=== PATIENT | female | born 1950 | race Two or more races ===

== ENCOUNTER 2018-07-03 13:08 | Inpatient (IN) | payer MEDICARE, OTHER ==
[~2018-07-03] VITALS: Ht 154.9 cm; Wt 67.6 kg
[2018-07-03] MEDS ORDERED: OMEP20CA10 PO (13:44)
[2018-07-03] MEDS ORDERED: HYDR-3028 PO (13:44)
[2018-07-03] MEDS ORDERED: OLOP5DRO EACHEYE (13:44)
[2018-07-03] MEDS ORDERED: ACET-868 PO (13:44)
[2018-07-03] MEDS ORDERED: MONT10TA22 PO (13:44)
[2018-07-03] MEDS ORDERED: GABA-534 PO (13:44)
[2018-07-03] MEDS ORDERED: LEVE750T10 PO (13:44)
[2018-07-03] MEDS ORDERED: NAPR500T6 PO (13:44)
[2018-07-03] MEDS ORDERED: LISI-603 PO (13:44)
[2018-07-03] MEDS ORDERED: FURO20TA4 PO (13:44)
[2018-07-03] MEDS ORDERED: MAG HYDROX/AL HYDROX/SIMETH 30 ML UDC PO PRN (14:00)
--- NOTE | 2018-07-03 15:00 | NUR ---
GPS/RN RECEIVED PT DIRECT ADMIT FROM [facility]. ON 5150 FOR DTS. PT DENIES SI OR HI AT THE TIME OF ADMISSION. AMBULATORY SELF CARE. CHECKED FOR CONTRABAND. ADVISEMENT SERVED. ADMITTING ORDERS RECEIVED AND CARRIED OUT. FARA DUPREE MADE AWARE OF ADMISSION.
--- NOTE | 2018-07-03 15:29 | NUR ---
Dr. Orellana made aware fo the admission with orders and Mari Mancera NP made aware and told to reconcile meds.
[2018-07-03 16:00] VITALS: BP 147/83
[2018-07-03] MEDS: ACETAMINOPHEN 325 MG TABLET PO PRN (18:42)
--- NOTE | 2018-07-03 19:13 | NUR ---
Contacted Katherine Sosa at [phone] and was notified about the admission.
[2018-07-03 20:00] VITALS: BP 132/90
[2018-07-03] MEDS: LEVETIRACETAM (250 MG) 250 MG TABLET PO SCH (21:13)
[2018-07-03] MEDS: TEMAZEPAM 7.5 MG CAPSULE PO PRN (22:02)
[2018-07-03] MEDS: LORAZEPAM 0.5 MG TABLET PO PRN (22:33)
--- NOTE | 2018-07-03 22:33 | NUR ---
GPS RN PRN NOTES PATIENT C/O FEELING ANXIOUS AND REQUESTED FOR ATIVAN. ADMINISTERED ATIVAN 0.5MG PO ORDERED. WILL CONTINUE TO MONITOR CLOSELY FOR PATIENT'S SAFETY AND BEHAVIOR.
[2018-07-04] MEDS: MAGNESIUM HYDROXIDE 30 ML UDC PO PRN (01:03)
[2018-07-04] MEDS: ACETAMINOPHEN 325 MG TABLET PO PRN ×2 (03:48→21:15)
[2018-07-04 08:00] VITALS: BP 145/92
[2018-07-04] MEDS: GABAPENTIN 300 MG CAPSULE PO SCH ×3 (09:25→16:48)
[2018-07-04] MEDS: MONTELUKAST SODIUM (10MG) 10 MG TABLET PO SCH (09:25)
[2018-07-04] MEDS: FUROSEMIDE 20 MG TABLET PO SCH (09:25)
[2018-07-04] MEDS: LISINOPRIL (20MG) 20 MG TABLET PO SCH (09:26)
[2018-07-04] MEDS: PANTOPRAZOLE 40 MG TABLET.DR PO SCH (09:26)
[2018-07-04] MEDS: OLOPATADINE HCL 0.1% OPHTH BOTTLE EACHEYE SCH ×2 (09:27→16:49)
[2018-07-04] MEDS: LEVETIRACETAM (250 MG) 250 MG TABLET PO SCH ×2 (11:46→21:09)
[2018-07-04] MEDS: LORAZEPAM 0.5 MG TABLET PO PRN (12:37)
--- NOTE | 2018-07-04 15:40 | NUR ---
GPS/RN ATARAX 50MG PO TID ORDERED BY DR ARAGON FOR ITCHING. PT REFUSED BLOOD DRAW AT THIS TIME. REQUESTED TO REPEAT BLOOD DRAW LATER TODAY.
[2018-07-04 16:00] VITALS: BP 117/78
[2018-07-04] MEDS: hydrOXYzine PAMOATE 25 MG CAPSULE PO SCH (16:48)
[2018-07-04] MEDS: risperiDONE 1 MG TABLET PO SCH (16:48)
[2018-07-04 20:21] VITALS: BP 91/62
[2018-07-05 08:00] VITALS: BP 97/64
[2018-07-05 08:05] LABS: ALBUMIN 3.3 g/dL (3.4-5.0); BILIRUBIN,TOTAL 0.2 mg/dL (0.2-1.0); CALCIUM, SERUM 8.9 mg/dL (8.5-10.1); CREATININE 0.7 mg/dL (0.6-1.3); TOTAL PROTEIN, SERUM 6.9 g/dL (6.4-8.2)
[2018-07-05 08:06] LABS: CHOLESTEROL 131 mg/dL (<200); HDL CHOLESTEROL 39 mg/dL (40-60); LDL 76 mg/dL (0-99); TRIGLYCERIDES 128 mg/dL (30-150)
[2018-07-05] MEDS: FUROSEMIDE 20 MG TABLET PO SCH (09:00)
[2018-07-05] MEDS: LISINOPRIL (20MG) 20 MG TABLET PO SCH (09:00)
[2018-07-05] MEDS: NICOTINE PATCH (7MG) 7 MG PATCH.TD24 TD SCH (09:34)
[2018-07-05] MEDS: hydrOXYzine PAMOATE 25 MG CAPSULE PO SCH ×3 (09:35→18:03)
[2018-07-05] MEDS: ESCITALOPRAM OXALATE (10 MG) 10 MG TABLET PO SCH (09:35)
[2018-07-05] MEDS: PANTOPRAZOLE 40 MG TABLET.DR PO SCH (09:35)
[2018-07-05] MEDS: MONTELUKAST SODIUM (10MG) 10 MG TABLET PO SCH (09:35)
[2018-07-05] MEDS: risperiDONE 1 MG TABLET PO SCH ×2 (09:36→18:02)
[2018-07-05] MEDS: ACETAMINOPHEN 325 MG TABLET PO PRN ×2 (09:42→22:34)
--- NOTE | 2018-07-05 09:42 | NUR ---
RN-CO: TYLENOL 650 MG PO GIVEN FOR BACK PAIN.
[2018-07-05] MEDS: OLOPATADINE HCL 0.1% OPHTH BOTTLE EACHEYE SCH ×2 (09:44→18:04)
[2018-07-05] MEDS: GABAPENTIN 300 MG CAPSULE PO SCH ×3 (10:54→18:03)
[2018-07-05] MEDS: LEVETIRACETAM (250 MG) 250 MG TABLET PO SCH ×2 (10:55→21:13)
[2018-07-05 16:00] VITALS: BP 131/93
--- NOTE | 2018-07-05 16:22 | NUR ---
GPS/RN-NOTES RECEIVED A CALL FROM LAB REGARDING PATIENT POSITIVE FOR MRSA NARES POSITIVE. MYA DUPREE MADE AWARE WITH T.O ORDER OF BACTROBAN OINT BID FOR 7 DAYS. NOTED AND CARRIED OUT. PATIENT WAS PUT ON CONTACT ISOLATION.
[2018-07-05 20:30] VITALS: BP 146/76
[2018-07-05] MEDS: MUPIROCIN OINT 2% 22 GM TUBE SCH (21:13)
[2018-07-06] MEDS: PANTOPRAZOLE 40 MG TABLET.DR PO SCH (07:44)
[2018-07-06 08:00] VITALS: BP 129/68
[2018-07-06] MEDS: NICOTINE PATCH (7MG) 7 MG PATCH.TD24 TD SCH (08:38)
[2018-07-06] MEDS: GABAPENTIN 300 MG CAPSULE PO SCH ×3 (08:38→16:11)
[2018-07-06] MEDS: LEVETIRACETAM (250 MG) 250 MG TABLET PO SCH ×2 (08:38→21:36)
[2018-07-06] MEDS: risperiDONE 1 MG TABLET PO SCH ×2 (08:39→16:10)
[2018-07-06] MEDS: ESCITALOPRAM OXALATE (10 MG) 10 MG TABLET PO SCH (08:39)
[2018-07-06] MEDS: hydrOXYzine PAMOATE 25 MG CAPSULE PO SCH ×3 (08:39→16:11)
[2018-07-06] MEDS: LISINOPRIL (20MG) 20 MG TABLET PO SCH (08:40)
[2018-07-06] MEDS: FUROSEMIDE 20 MG TABLET PO SCH (08:40)
[2018-07-06] MEDS: MONTELUKAST SODIUM (10MG) 10 MG TABLET PO SCH (08:40)
[2018-07-06] MEDS: OLOPATADINE HCL 0.1% OPHTH BOTTLE EACHEYE SCH ×2 (08:42→16:28)
[2018-07-06] MEDS: MUPIROCIN OINT 2% 22 GM TUBE SCH ×2 (08:42→21:36)
[2018-07-06] MEDS: LORAZEPAM 0.5 MG TABLET PO PRN (08:58)
--- NOTE | 2018-07-06 09:40 | NUR ---
PT GIVEN ALL MEDICATIONS ATE 100% OF BREAKFAST ALERT AND ORIENTED X 3 PT HAS WALKER AT BEDSIDE PT ANSWERS CONVERSATION IN LOGICAL MANNER NO NOTED DISCOMFORT OR PAIN AT PRESENT.
--- NOTE | 2018-07-06 09:56 | NUR ---
INITIAL DISCHARGE NOTE: Patient wishes to be discharged home to [address] [place] [id number]. will arrange transportation with [facility] [phone]. LUPE will help form a safe and proper discharge in collaboration with pt and MD.
--- NOTE | 2018-07-06 12:28 | NUR ---
LUPE and Psychiatrist Dr Orellana spoke with pt regarding his recommendation to be discharged to a SNF due to pt living alone and facing eviction. Pt agreed to discharge to a SNF. SW will contact pts children and inform them of SNF placement and help form a safe and proper discharge plan.
--- NOTE | 2018-07-06 12:30 | NUR ---
SW contacted pts daughter Marj [phone] and left voicemail for callback.
--- NOTE | 2018-07-06 12:30 | NUR ---
SW contacted pts daughter Katherine [phone] and left voicemail for callback.
--- NOTE | 2018-07-06 13:32 | NUR ---
SW received a phone call from pts daughter Marj [phone] requesting discharge information. SW informed her that Psychiatrist and SW spoke with pt regarding SNF placement and informed her pt agreed. Pts daughter agrees with SNF placement and stated that pt no longer has a home to go to and that her belongings are being packed up by her and pts son. Daughter informed SW that pt has a problem with current drug use and is non-complaint with care. Daughter stated that pt is unable to care for herself and is unable to live alone. Daughter also stated that her and pts other children are unable to care for pt as pt is very difficult to manage. Daughter stated that she wishes for pt to be closer to [place] however, is aware that finding placement out there will be difficult and agrees to local placement.
--- NOTE | 2018-07-06 14:27 | NUR ---
LUPE received a phone call from pts daughter Marj [phone] requesting pt be placed near [place], LUPE informed her that due to distance is unable to place pt and also informed her that Medicare only covers 25 miles of ambulance transportation and hospital policy is for pts to be transported via ambulance to a SNF. Daughter stated that [facility] had agreed to transport pt back to [place], SW explained that agreement between [facility] and Hospital was for pt to return home once stable for discharge and due to discharge plan changing [facility] will not transport to SNF. Daughter understood and stated she agrees for pt to be discharged locally. LUPE will collaborate with Psychiatrist and fax referrals to appropriate SNF's.
--- NOTE | 2018-07-06 15:41 | NUR ---
AURE THAKUR EVALUATING PT. PT EXPLAINING VARIOUS PAIN LOCATIONS AND DOCTORS TO F/U WITH
[2018-07-06 16:00] VITALS: BP 110/60
[2018-07-06] MEDS: LIDOCAINE 5% (PATCH) 1 EA PATCH TP SCH (17:34)
[2018-07-06] MEDS: ACETAMINOPHEN 325 MG TABLET PO PRN (17:34)
[2018-07-06 20:00] VITALS: BP 123/66
[2018-07-06] MEDS: TEMAZEPAM 7.5 MG CAPSULE PO PRN ×2 (23:29)
[2018-07-07] MEDS: ACETAMINOPHEN 325 MG TABLET PO PRN ×2 (04:18→13:18)
[2018-07-07 08:00] VITALS: BP 122/68
[2018-07-07] MEDS: hydrOXYzine PAMOATE 25 MG CAPSULE PO SCH ×3 (09:14→16:40)
[2018-07-07] MEDS: MONTELUKAST SODIUM (10MG) 10 MG TABLET PO SCH (09:14)
[2018-07-07] MEDS: LISINOPRIL (20MG) 20 MG TABLET PO SCH (09:15)
[2018-07-07] MEDS: risperiDONE 1 MG TABLET PO SCH ×2 (09:15→16:40)
[2018-07-07] MEDS: PANTOPRAZOLE 40 MG TABLET.DR PO SCH (09:15)
[2018-07-07] MEDS: ESCITALOPRAM OXALATE (10 MG) 10 MG TABLET PO SCH (09:15)
[2018-07-07] MEDS: FUROSEMIDE 20 MG TABLET PO SCH (09:16)
[2018-07-07] MEDS: GABAPENTIN 300 MG CAPSULE PO SCH ×3 (09:16→16:40)
[2018-07-07] MEDS: MUPIROCIN OINT 2% 22 GM TUBE SCH ×2 (09:21→20:23)
[2018-07-07] MEDS: OLOPATADINE HCL 0.1% OPHTH BOTTLE EACHEYE SCH ×2 (09:22→16:44)
[2018-07-07] MEDS: LEVETIRACETAM (250 MG) 250 MG TABLET PO SCH ×2 (09:24→20:22)
[2018-07-07] MEDS: NICOTINE PATCH (7MG) 7 MG PATCH.TD24 TD SCH (09:24)
--- NOTE | 2018-07-07 14:29 | NUR ---
GPS RN NOTE : PATIENT IN THE ROOM PER PATIENT REQUEST, COMPLAINING OF PAIN, MD AWARE NO NEW ORDERS AT THIS TIME.TYLENOL GIVEN PER PATIENT REQUEST WILL CONT. MONITORING Q15 MINS. FOR SAFETY AND BEHAVIOR.
[2018-07-07] MEDS: LORAZEPAM 0.5 MG TABLET PO PRN (14:39)
--- NOTE | 2018-07-07 14:48 | NUR ---
GPS RN NOTE; PT ANXIOUS ATIVAN 0.5 MG PO PRN GIVEN PER ORDER WILL CONTINUE MONITORING.
[2018-07-07 16:00] VITALS: BP 131/74
[2018-07-07] MEDS: LIDOCAINE 5% (PATCH) 1 EA PATCH TP SCH (16:45)
[2018-07-07 20:00] VITALS: BP 109/73
[2018-07-07] MEDS: TEMAZEPAM 7.5 MG CAPSULE PO PRN (22:45)
[2018-07-08] MEDS: ACETAMINOPHEN 325 MG TABLET PO PRN ×2 (05:31→20:23)
[2018-07-08] MEDS: LORAZEPAM 0.5 MG TABLET PO PRN (07:02)
--- NOTE | 2018-07-08 07:03 | NUR ---
GPS RN NOTE, PATIENT HAS A COMPLAINT OF FEELING OF ANXIOUS AND IS REQUESTING ATIVAN AT THIS TIME. PATIENT VITAL SIGNS ARE STABLE. GAVE ATIVAN 0.5MG PO Q6HR PRN ORDERED. WILL REASSESS FOR ANXIETY AND I WILL CONTINUE TO MONITOR THIS PATIENT.
[2018-07-08] MEDS: PANTOPRAZOLE 40 MG TABLET.DR PO SCH (07:30)
[2018-07-08 08:00] VITALS: BP 101/66
--- NOTE | 2018-07-08 08:24 | NUR ---
SW received a voicemail from pts daughter Katherine [phone] expressing concern stating that pt had been calling her several times stating that she did not have a bed and wasn't being fed. SW returned daughters call and left voicemail stating that pt is in her room by herself and is fed 3x/ day at 8:00, 12:00, and 5:00pm with snacks in between. SW also provided daughter with the nurses station phone number and advised her to call if she had concerns with pts care and food intake.
[2018-07-08] MEDS: OLOPATADINE HCL 0.1% OPHTH BOTTLE EACHEYE SCH ×2 (09:00→17:02)
[2018-07-08] MEDS: MUPIROCIN OINT 2% 22 GM TUBE SCH ×2 (09:00→20:23)
[2018-07-08] MEDS: NICOTINE PATCH (7MG) 7 MG PATCH.TD24 TD SCH (09:57)
[2018-07-08] MEDS: hydrOXYzine PAMOATE 25 MG CAPSULE PO SCH ×3 (09:58→16:59)
[2018-07-08] MEDS: LISINOPRIL (20MG) 20 MG TABLET PO SCH (09:59)
[2018-07-08] MEDS: FUROSEMIDE 20 MG TABLET PO SCH (09:59)
[2018-07-08] MEDS: GABAPENTIN 300 MG CAPSULE PO SCH ×3 (09:59→16:58)
[2018-07-08] MEDS: risperiDONE 1 MG TABLET PO SCH ×2 (10:00→16:59)
[2018-07-08] MEDS: MONTELUKAST SODIUM (10MG) 10 MG TABLET PO SCH (10:00)
[2018-07-08] MEDS: ESCITALOPRAM OXALATE (10 MG) 10 MG TABLET PO SCH (10:01)
--- NOTE | 2018-07-08 10:20 | NUR ---
LUPE faxed SNF referral to Shandra, global marketing coordinator at [facility] Address: [address] [place] [address] for review.
[2018-07-08] MEDS: LEVETIRACETAM (250 MG) 250 MG TABLET PO SCH ×2 (10:32→20:23)
--- NOTE | 2018-07-08 11:16 | NUR ---
LUPE received a call from Lianna, outreach coordinator at at [facility] Address: [address] [place] [address] stating pt has been accepted to the facility. LUPE will inform psychiatrist and plan for discharge.
[2018-07-08 16:00] VITALS: BP 118/71
--- NOTE | 2018-07-08 16:05 | NUR ---
LUPE received a phone call from pts daughter Marj [phone] requesting information regarding pts probable cause hearing. SW informed her that pts hearing is schedule for tomorrow 07/09/18 at 0930. SW explained the hearing process to daughter and explained that pt may be released if youth court judge finds that there is no cause for pt to be on a hold. Daughter informed SW that pt has no home as her home was ceased and homeowner has only allowed daughter to go in and recover pts belongings. Daughter informed LUPE that home no longer has running water and power will be turned off on Thursday07/12/18. Daughter explained that if pt does not accept SNF placement she and pts Son Catracho, and Daughter Katherine will no longer continue supporting her as Marj states children have attempted multiple times to assist mother and help her with her addiction and mental illness and pt has been unable to stay sober and receive medical help. LUPE will contact daughter tomorrow after hearing to inform her of results.
[2018-07-08] MEDS: LIDOCAINE 5% (PATCH) 1 EA PATCH TP SCH (17:02)
[2018-07-08 20:08] VITALS: BP 111/82
[2018-07-08] MEDS: TEMAZEPAM 7.5 MG CAPSULE PO PRN (20:23)
[2018-07-09] MEDS: ACETAMINOPHEN 325 MG TABLET PO PRN ×3 (04:43→23:55)
[2018-07-09 08:00] VITALS: BP 128/93
[2018-07-09] MEDS: NICOTINE PATCH (7MG) 7 MG PATCH.TD24 TD SCH (08:06)
[2018-07-09] MEDS: hydrOXYzine PAMOATE 25 MG CAPSULE PO SCH ×3 (08:09→17:04)
[2018-07-09] MEDS: GABAPENTIN 300 MG CAPSULE PO SCH ×3 (08:10→17:05)
[2018-07-09] MEDS: ESCITALOPRAM OXALATE (10 MG) 10 MG TABLET PO SCH (08:10)
[2018-07-09] MEDS: MONTELUKAST SODIUM (10MG) 10 MG TABLET PO SCH (08:10)
[2018-07-09] MEDS: risperiDONE 1 MG TABLET PO SCH ×2 (08:12→17:04)
[2018-07-09] MEDS: FUROSEMIDE 20 MG TABLET PO SCH (08:12)
[2018-07-09] MEDS: PANTOPRAZOLE 40 MG TABLET.DR PO SCH (08:12)
[2018-07-09] MEDS: LISINOPRIL (20MG) 20 MG TABLET PO SCH (08:12)
[2018-07-09] MEDS: LIDOCAINE 5% (PATCH) 1 EA PATCH TP SCH (08:12)
[2018-07-09] MEDS: MUPIROCIN OINT 2% 22 GM TUBE SCH ×2 (08:13→20:53)
[2018-07-09] MEDS: OLOPATADINE HCL 0.1% OPHTH BOTTLE EACHEYE SCH ×2 (08:13→17:05)
[2018-07-09] MEDS: LEVETIRACETAM (250 MG) 250 MG TABLET PO SCH ×2 (10:08→20:53)
[2018-07-09 16:00] VITALS: BP 113/76
[2018-07-09] MEDS: LORAZEPAM 0.5 MG TABLET PO PRN (17:04)
[2018-07-09 20:00] VITALS: BP 114/71
[2018-07-09] MEDS: TEMAZEPAM 7.5 MG CAPSULE PO PRN (20:57)
[2018-07-10] MEDS: LORAZEPAM 0.5 MG TABLET PO PRN ×3 (01:21→18:20)
[2018-07-10] MEDS: ACETAMINOPHEN 325 MG TABLET PO PRN ×4 (04:14→14:10)
[2018-07-10 08:00] VITALS: BP 136/81
[2018-07-10] MEDS: FUROSEMIDE 20 MG TABLET PO SCH (09:57)
[2018-07-10] MEDS: LISINOPRIL (20MG) 20 MG TABLET PO SCH (09:57)
[2018-07-10] MEDS: MUPIROCIN OINT 2% 22 GM TUBE SCH ×2 (09:57→21:13)
[2018-07-10] MEDS: ESCITALOPRAM OXALATE (10 MG) 10 MG TABLET PO SCH (09:58)
[2018-07-10] MEDS: LIDOCAINE 5% (PATCH) 1 EA PATCH TP SCH (09:58)
[2018-07-10] MEDS: GABAPENTIN 300 MG CAPSULE PO SCH ×3 (09:58→17:31)
[2018-07-10] MEDS: NICOTINE PATCH (7MG) 7 MG PATCH.TD24 TD SCH (09:58)
[2018-07-10] MEDS: MONTELUKAST SODIUM (10MG) 10 MG TABLET PO SCH (09:59)
[2018-07-10] MEDS: hydrOXYzine PAMOATE 25 MG CAPSULE PO SCH ×3 (09:59→17:30)
[2018-07-10] MEDS: risperiDONE 1 MG TABLET PO SCH ×2 (09:59→17:30)
[2018-07-10] MEDS: OLOPATADINE HCL 0.1% OPHTH BOTTLE EACHEYE SCH ×2 (10:00→17:30)
[2018-07-10] MEDS: PANTOPRAZOLE 40 MG TABLET.DR PO SCH (10:05)
--- NOTE | 2018-07-10 10:25 | NUR ---
medicated for back pain and anxiety with tylenol 325 mg and ativan 0.5 mg po.
[2018-07-10] MEDS: LEVETIRACETAM (250 MG) 250 MG TABLET PO SCH ×2 (10:26→21:13)
[2018-07-10] MEDS: MAGNESIUM HYDROXIDE 30 ML UDC PO PRN (14:10)
--- NOTE | 2018-07-10 14:13 | NUR ---
medicated again for back pain with tylenol 650mg po and constipation with mom.
--- NOTE | 2018-07-10 14:27 | NUR ---
given hot pack for back pain.
[2018-07-10 16:00] VITALS: BP 111/63
--- NOTE | 2018-07-10 18:27 | NUR ---
medicated for anxiety again withativan.
[2018-07-10 20:00] VITALS: BP 102/56
[2018-07-10] MEDS: TEMAZEPAM 7.5 MG CAPSULE PO PRN (21:15)
[2018-07-11] MEDS: ACETAMINOPHEN 325 MG TABLET PO PRN ×2 (03:36→21:12)
[2018-07-11] MEDS: LORAZEPAM 0.5 MG TABLET PO PRN ×2 (03:36→22:23)
--- NOTE | 2018-07-11 03:37 | NUR ---
C/O LOWER BACK PAIN, TYLENOL 650 MG TAB PO GIVEN. C/O ALSO OF ANXIETY, ATIVAN 0.5 MG TAB PO GIVEN.
[2018-07-11] MEDS: PANTOPRAZOLE 40 MG TABLET.DR PO SCH (07:30)
[2018-07-11 08:10] VITALS: BP 119/59
[2018-07-11] MEDS: GABAPENTIN 300 MG CAPSULE PO SCH ×3 (09:00→16:54)
[2018-07-11] MEDS: OLOPATADINE HCL 0.1% OPHTH BOTTLE EACHEYE SCH ×2 (09:00→16:52)
[2018-07-11] MEDS: risperiDONE 1 MG TABLET PO SCH ×3 (09:00→16:55)
[2018-07-11] MEDS: LISINOPRIL (20MG) 20 MG TABLET PO SCH (09:00)
[2018-07-11] MEDS: MONTELUKAST SODIUM (10MG) 10 MG TABLET PO SCH (09:00)
[2018-07-11] MEDS: hydrOXYzine PAMOATE 25 MG CAPSULE PO SCH ×3 (09:00→16:55)
[2018-07-11] MEDS: FUROSEMIDE 20 MG TABLET PO SCH (09:00)
[2018-07-11] MEDS: MUPIROCIN OINT 2% 22 GM TUBE SCH ×2 (09:00→21:12)
[2018-07-11] MEDS: NICOTINE PATCH (7MG) 7 MG PATCH.TD24 TD SCH (09:00)
[2018-07-11] MEDS: LEVETIRACETAM (250 MG) 250 MG TABLET PO SCH ×2 (09:00→21:11)
[2018-07-11] MEDS: ESCITALOPRAM OXALATE (10 MG) 10 MG TABLET PO SCH (09:00)
[2018-07-11 16:15] VITALS: BP 118/57
[2018-07-11] MEDS: LIDOCAINE 5% (PATCH) 1 EA PATCH TP SCH (16:56)
[2018-07-11 20:53] VITALS: BP 128/62
[2018-07-11] MEDS: TEMAZEPAM 7.5 MG CAPSULE PO PRN (21:13)
--- NOTE | 2018-07-11 21:13 | NUR ---
TEMAZEPAM 7.5 MG CAP PO GIVEN FOR SLEEP.
--- NOTE | 2018-07-11 21:14 | NUR ---
TYLENOL 650 MG PO GIVEN FOR BACK PAIN PER PATIENT'S REQUEST
[2018-07-11] MEDS: MAGNESIUM HYDROXIDE 30 ML UDC PO PRN (22:34)
--- NOTE | 2018-07-11 22:35 | NUR ---
c/o constipation, milk of magnesia 30 ml po given per her request.
[2018-07-12] MEDS: ACETAMINOPHEN 325 MG TABLET PO PRN ×2 (04:07→10:12)
[2018-07-12] MEDS: LORAZEPAM 0.5 MG TABLET PO PRN ×2 (05:57→15:42)
--- NOTE | 2018-07-12 05:57 | NUR ---
ATIVAN 0.5 MG TAB PO GIVEN FOR ANXIETY PER PATIENT'S REQUEST
[2018-07-12 08:00] VITALS: BP 111/67
--- NOTE | 2018-07-12 08:33 | NUR ---
SW received a phone call from pts daughter Marj [phone] on Thursday07/09/18 at 1600 requesting information regarding pts probable cause hearing. SW informed her that pt chose not to attend the hearing and that the hearing was appalled. Daughter informed SW that pt will no longer have a home as of 07/14/18. SW informed daughter that pt has been [facility]. Daughter agreed with discharge to SNF. SW will contact daughter when DC has been ordered by Psychiatrist.
[2018-07-12] MEDS: FUROSEMIDE 20 MG TABLET PO SCH (09:00)
[2018-07-12] MEDS: MUPIROCIN OINT 2% 22 GM TUBE SCH (09:00)
[2018-07-12] MEDS: hydrOXYzine PAMOATE 25 MG CAPSULE PO SCH ×3 (09:14→17:51)
[2018-07-12] MEDS: NICOTINE PATCH (7MG) 7 MG PATCH.TD24 TD SCH (09:14)
[2018-07-12] MEDS: LEVETIRACETAM (250 MG) 250 MG TABLET PO SCH ×2 (09:15→20:45)
[2018-07-12] MEDS: PANTOPRAZOLE 40 MG TABLET.DR PO SCH (09:15)
[2018-07-12] MEDS: MONTELUKAST SODIUM (10MG) 10 MG TABLET PO SCH (09:16)
[2018-07-12] MEDS: LISINOPRIL (20MG) 20 MG TABLET PO SCH (09:16)
[2018-07-12] MEDS: GABAPENTIN 300 MG CAPSULE PO SCH ×3 (09:29→17:50)
[2018-07-12] MEDS: ESCITALOPRAM OXALATE (10 MG) 10 MG TABLET PO SCH (09:29)
[2018-07-12] MEDS: risperiDONE 1 MG TABLET PO SCH ×3 (09:30→17:51)
[2018-07-12] MEDS: OLOPATADINE HCL 0.1% OPHTH BOTTLE EACHEYE SCH ×2 (09:32→17:51)
--- NOTE | 2018-07-12 10:12 | NUR ---
rn notes administered Tylenol 650 mg po prn for generalized pain 5/10 per patient request, also administered hot packs, continued monitoring.
--- NOTE | 2018-07-12 14:34 | NUR ---
LUPE contacted pts daughter Marj [phone] and informed her pt has agreed to be discharged to [facility] and will be discharged tomorrow 07/13/18. Daughter agreed with discharge plan.
--- NOTE | 2018-07-12 15:42 | NUR ---
rn notes administered ativan 0.5 mg po prn for anxiety, v/s taken bp-125/68. p-80, continued monitoring.
[2018-07-12 16:00] VITALS: BP 125/68
[2018-07-12] MEDS: LIDOCAINE 5% (PATCH) 1 EA PATCH TP SCH (17:50)
[2018-07-12 20:00] VITALS: BP 106/79
[2018-07-12] MEDS: TEMAZEPAM 7.5 MG CAPSULE PO PRN (22:10)
[2018-07-13] MEDS: LORAZEPAM 0.5 MG TABLET PO PRN (02:59)
[2018-07-13 08:00] VITALS: BP 100/65
--- NOTE | 2018-07-13 08:00 | NUR ---
RN-CO: Dr Orellana ordered to discontinue hold and discharge patient today. Patient remain calm and cooperative to care. Denied suicidal ideation, denied homicidal ideation. Patient also denied auditory and visual hallucination. Daughter Laura is aware of her discharge.
[2018-07-13] MEDS: GABAPENTIN 300 MG CAPSULE PO SCH (09:13)
[2018-07-13] MEDS: NICOTINE PATCH (7MG) 7 MG PATCH.TD24 TD SCH (09:13)
[2018-07-13] MEDS: OLOPATADINE HCL 0.1% OPHTH BOTTLE EACHEYE SCH (09:13)
[2018-07-13 09:14] VITALS: BP 134/85
[2018-07-13] MEDS: risperiDONE 1 MG TABLET PO SCH (09:14)
[2018-07-13] MEDS: LISINOPRIL (20MG) 20 MG TABLET PO SCH (09:14)
[2018-07-13] MEDS: hydrOXYzine PAMOATE 25 MG CAPSULE PO SCH (09:14)
[2018-07-13] MEDS: ESCITALOPRAM OXALATE (10 MG) 10 MG TABLET PO SCH (09:14)
[2018-07-13] MEDS: FUROSEMIDE 20 MG TABLET PO SCH (09:14)
[2018-07-13] MEDS: PANTOPRAZOLE 40 MG TABLET.DR PO SCH (09:14)
[2018-07-13] MEDS: ACETAMINOPHEN 325 MG TABLET PO PRN (09:14)
[2018-07-13] MEDS: MONTELUKAST SODIUM (10MG) 10 MG TABLET PO SCH (09:14)
[2018-07-13] MEDS: LEVETIRACETAM (250 MG) 250 MG TABLET PO SCH (09:15)
--- NOTE | 2018-07-13 11:00 | NUR ---
RN-CO: Patient was seen and examined by Gareth Humphries NP and medically cleared for discharge.
--- NOTE | 2018-07-13 12:02 | NUR ---
GPS RN PT DISCHARGED PT DISCHARGED TO [facility] IN MEDICALLY STABLE CONDITION. MENTAL STATUS AT BASELINE, PT DENIES CHEST PAIN, SOB AND PAIN. NO ACUTE DISTRESS NOTED, BREATHING IS EVEN AND UNLABORED ON ROOM AIR. REPORT GIVEN TO SIMONE PENDLETON FOR CONTINUITY OF CARE, MEDICATION RECON FAXED REQUESTED. DISCHARGE PAPERWORK AND EDUCATION PROVIDED PER PROTOCOL, WOUND DOCUMENTATION COMPLETED PT HAS A HEALING ABRASION ON THE RIGHT KNEE AND SLIGHT REDNESS OF THE MID BACK. PT DID NOT HAVE ANY IV ACCESS TO REMOVE. ALL BELONGINGS ACCOUNTED FOR, PT PROVIDED WITH SANDWICH PRIOR TO D/C. REPORT GIVEN TO AMBULANCE STAFF FOR TRANSFER OF CARE.
--- NOTE | 2018-07-13 13:30 | NUR ---
DISCHARGE NOTE: Pt was discharged at 11:45am via [facility] ambulance trip #[id number] to [facility] ([facility]) Address: [address] [place] [address] . Pts Daughter Brianne [phone] has been notified and agreed with discharge plan. Pts mood was agitated with congruent affect due to not wanting to be discharged to a retirement. Pt denied visual/auditory hallucinations and denied suicidal/homicidal ideations. Pt will address her substance use and continue her psychiatric treatment with Psychiatrist: Dr. Orellana Address: [address] [place] [address] . Pt will be under the care of Knitting Inspector: Dr. Leonardo Roberts [address] [place] [address] . For smoking cessation, patient was referred to the [employer] and [employer] [id number]. Pt will also participate in a telephone meeting with Nicotine Anonymous [phone] on Saturday July 14, 2018 at 8:00am. The multidisciplinary exitcare form was done, printed, signed, and given to the patient.
--- NOTE | 2018-07-29 10:49 | NUR ---
15 DAY SUBSTANCE ABUSE FOLLOW-UP: Excluded due to D/C to SNF.
== END 2018-07-13 12:00 | DRG 885 ==
LOC: GPS 13:08
PROVIDERS: ADMIT Psychiatry & Neurology Psychiatry; ATTEND Psychiatry & Neurology Psychiatry
DX: F29 Unspecified psychosis not due to a substance or known physiological condition (principal); N17.0 Acute kidney failure with tubular necrosis; F11.20 Opioid dependence, uncomplicated; E44.1 Mild protein-calorie malnutrition; E87.6 Hypokalemia; G40.909 Epilepsy, unspecified, not intractable, without status epilepticus; F32.9 Major depressive disorder, single episode, unspecified; Z91.19 Patient's noncompliance with other medical treatment and regimen; M79.7 Fibromyalgia; Z68.28 Body mass index [BMI] 28.0-28.9, adult; E88.09 Other disorders of plasma-protein metabolism, not elsewhere classified; J44.9 Chronic obstructive pulmonary disease, unspecified; G62.9 Polyneuropathy, unspecified; M19.90 Unspecified osteoarthritis, unspecified site; F39 Unspecified mood [affective] disorder; M71.9 Bursopathy, unspecified; Z76.5 Malingerer [conscious simulation]; G89.29 Other chronic pain; Z85.3 Personal history of malignant neoplasm of breast; Z22.322 Carrier or suspected carrier of Methicillin resistant Staphylococcus aureus; Z86.19 Personal history of other infectious and parasitic diseases; F17.200 Nicotine dependence, unspecified, uncomplicated; E78.00 Pure hypercholesterolemia, unspecified
CPT/HCPCS: 36415; 80053-TC; 80061-TC; 87081-TC; 93307-TC; Q0177

== ENCOUNTER 2018-09-12 13:50 | Inpatient (IN) | payer MEDICARE, OTHER ==
[~2018-09-12] VITALS: Ht 154.9 cm; Wt 69.9 kg
[~2018-09-12 13:50] MED LIST: ACET-868 PO; FURO20TA4 PO; GABA-534 PO; HYDR-3028 PO; LEVE750T10 PO; LISI-603 PO; MONT10TA22 PO; NAPR500T6 PO; OLOP5DRO EACHEYE; OMEP20CA10 PO
[2018-09-12 22:30] VITALS: BP 119/80
--- NOTE | 2018-09-12 22:30 | NUR ---
GPS HARD METALS HAND ENGRAVER NOTES: ADMITTED A 68YO FEMALE FROM [facility]. ON 5150 HOLD FOR DANGER TO SELF AND GRAVE DISABILITY. PER HOLD PATIENT WAS REPORTED TO HAVE WALKED INTO BUSINESS ([employer]) REQUIRE MEDICAL ASSISTANCE. IT WAS ALSO STATED IN THE REPORT THAT SHE WAS IN HYSTERIA AND NOT MAKING ANY SENSE. SHE STATED THAT NO ONE CARES ABOUT HER AND WANTED TO JUMP INTO TRAFFIC TO CAUSE SELF HARM. PATIENT USHERED INTO HER ROOM. UPON FACE TO FACE ASSESSMENT, PATIENT PRESENTS ALERT AND ORIENTED X2-3, ABLE TO WALK BUT WITH ASSISTANCE. NOTED TO BE UNKEMPT, DISORGANIZED, DISHEVELED, FOCUSED ON HER PAIN. REALITY ORIENTATION DONE. ORIENTATION TO UNIT, STAFF, POLICIES, CARE PLANS AND DOCTORS DONE. Q15 MIN CHECKS INITIATED. CARE PLAN STARTED. SKIN AND BODY ASSESSMENT DONE.PICTURES TAKEN AND PLACED IN THE CHART. WOUND CARE CONSULT TRIGGERED FOR WOUND ON HER LEFT KNEE AND SCRATCH MORFIN ON HER ABDOMEN AND BACK. CALLED CELIA THAKUR NP FOR [facility]. WILL FOLLOW UP. SPOKE WITH HER DAUGHTER REGARDING HER MOTHER'S ADMISSION TO THE UNIT. WILL RELAY TO EXPRESS CLERK. MRSA DONE. WILL MONITOR PATIENT FOR MOOD, SAFETY AND BEHAVIOR.
[2018-09-12 22:35] VITALS: BP 119/80
[2018-09-12] MEDS ORDERED: MAGNESIUM HYDROXIDE 30 ML UDC PO PRN (23:00)
[2018-09-12] MEDS ORDERED: POTA-88 PO (23:32)
[2018-09-13] MEDS: TEMAZEPAM 7.5 MG CAPSULE PO PRN ×2 (00:58→20:23)
[2018-09-13 08:00] VITALS: BP 124/62
[2018-09-13] MEDS: PANTOPRAZOLE 40 MG TABLET.DR PO SCH ×3 (08:30→09:16)
[2018-09-13] MEDS: MONTELUKAST SODIUM (10MG) 10 MG TABLET PO SCH (08:35)
[2018-09-13] MEDS: FUROSEMIDE 20 MG TABLET PO SCH ×3 (08:35→09:17)
[2018-09-13] MEDS: OLOPATADINE HCL 0.1% OPHTH BOTTLE EACHEYE SCH ×2 (09:00→16:26)
[2018-09-13] MEDS: GABAPENTIN 300 MG CAPSULE PO SCH ×3 (09:00→17:00)
[2018-09-13] MEDS ORDERED: NICOTINE PATCH (21MG) 21 MG PATCH.TD24 TD PRN (09:00)
[2018-09-13] MEDS: LISINOPRIL (20MG) 20 MG TABLET PO SCH ×3 (09:00→09:17)
[2018-09-13] MEDS ORDERED: OMEPRAZOLE 20 MG CAPSULE.DR PO SCH (09:00)
[2018-09-13] MEDS: LEVETIRACETAM (250 MG) 250 MG TABLET PO SCH ×2 (09:11→20:21)
[2018-09-13] MEDS: NAPROXEN 500 MG TABLET PO PRN (09:20)
[2018-09-13 14:13] LABS: BASOPHILS % (AUTO) 0.4 % (0.0-2.0); EOSINOPHILS % (AUTO) 2.4 % (0.0-6.0); HEMATOCRIT 38 % (33-45); HEMOGLOBIN 12.5 g/dL (11.5-14.8); LYMPHOCYTES # (AUTO) 1.9 /CMM (0.8-4.8); LYMPHOCYTES % (AUTO) 29.4 % (20.0-44.0); MEAN CORPUSCULAR HGB CONC 33 g/dl (31.0-36.0); MEAN CORPUSCULAR VOLUME 92 fL (82-100); MONOCYTES # (AUTO) 0.7 /CMM (0.1-1.30); MONOCYTES % (AUTO) 10.6 % (2.0-12.0); NEUTROPHILS # (AUTO) 3.6 /CMM (1.8-8.9); NEUTROPHILS % (AUTO) 57.2 % (43.0-81.0); PLATELET COUNT (AUTO) 235 /CMM (150-450); RED BLOOD CELL COUNT(AUTO) 4.09 MIL/uL (4.0-5.2); WHITE BLOOD COUNT (AUTO) 6.4 K/uL (4.3-11.0)
[2018-09-13 14:25] LABS: ALBUMIN 3.5 g/dL (3.4-5.0); BILIRUBIN,TOTAL 0.2 mg/dL (0.2-1.0); CALCIUM, SERUM 8.8 mg/dL (8.5-10.1); CREATININE 0.7 mg/dL (0.6-1.3); MAGNESIUM 1.9 mg/dL (1.8-2.4); PHOSPHORUS 3.4 mg/dL (2.5-4.9); POTASSIUM 4.3 mmol/L (3.5-5.1); TOTAL PROTEIN, SERUM 6.7 g/dL (6.4-8.2)
[2018-09-13 14:27] LABS: CHOLESTEROL 127 mg/dL (<200); HDL CHOLESTEROL 45 mg/dL (40-60); LDL 66 mg/dL (0-99); TRIGLYCERIDES 99 mg/dL (30-150)
[2018-09-13 14:34] LABS: THYROID STIMULATING HORMONE 0.763 uIU/mL (0.358-3.74)
--- NOTE | 2018-09-13 15:24 | NUR ---
SW contacted pts daughter Ana Laura [phone] to discuss pts discharge plan. Daughter informed SW that pt was discharged from a SNF and pt took a train to [place] where she was living in motels until she spent all her money and was placed on a hold. Daughter stated that she does not want pt placed at a local SNF because it is too far from where she lives and also stated that she wants pt placed in [place] or [place]. SW explained that she is unable to place pt at a SNF in a different County as Medicare only covers 20 miles of ambulance transportation and also informed her that the hospital has an agreement with [facility] to transport pt back. Daughter was upset that [facility] transferred pt to [facility] and stated that she is unable to take care of pt due to pt being non-compliant with care. Daughter sated that she doesn't know what to do with pts current situation. SW will attempt to refer pt to SNF in [facility] and arrange transportation through [facility].
[2018-09-13 16:00] VITALS: BP 136/73
[2018-09-13] MEDS: POTASSIUM CHLORIDE 20 MEQ TAB.PRT.SR PO SCH (16:25)
[2018-09-13] MEDS: LORAZEPAM 0.5 MG TABLET PO PRN (16:27)
[2018-09-13] MEDS: TRAMADOL HCL 50 MG TABLET PO PRN (19:25)
[2018-09-13 19:44] VITALS: BP 130/80
[2018-09-13] MEDS: risperiDONE 1 MG TABLET PO SCH (21:24)
[2018-09-14 08:00] VITALS: BP 134/75
--- NOTE | 2018-09-14 09:08 | NUR ---
INITIAL DISCHARGE PLAN: Per pt she wishes to be discharged back to [facility]. Daughter Ana Laura [phone] also wishes for pt to be transferred to a SNF in [facility]. SW will attempt to refer pt to a SNF in [facility]. If unable to, pt wishes to be discharged to a skilled nursing in [facility]. LUPE will help form a safe and proper discharge in collaboration with .
[2018-09-14] MEDS: LEVETIRACETAM (250 MG) 250 MG TABLET PO SCH ×2 (09:13→20:34)
[2018-09-14] MEDS: hydrOXYzine PAMOATE 25 MG CAPSULE PO PRN (09:13)
[2018-09-14] MEDS: LISINOPRIL (20MG) 20 MG TABLET PO SCH (09:13)
[2018-09-14] MEDS: PANTOPRAZOLE 40 MG TABLET.DR PO SCH (09:14)
[2018-09-14] MEDS: ESCITALOPRAM OXALATE (10 MG) 10 MG TABLET PO SCH (09:14)
[2018-09-14] MEDS: GABAPENTIN 300 MG CAPSULE PO SCH ×3 (09:14→17:33)
[2018-09-14] MEDS: FUROSEMIDE 20 MG TABLET PO SCH (09:15)
[2018-09-14] MEDS: MONTELUKAST SODIUM (10MG) 10 MG TABLET PO SCH (09:15)
[2018-09-14] MEDS: POTASSIUM CHLORIDE 20 MEQ TAB.PRT.SR PO SCH ×2 (09:15→17:32)
[2018-09-14] MEDS: OLOPATADINE HCL 0.1% OPHTH BOTTLE EACHEYE SCH ×2 (09:16→17:32)
--- NOTE | 2018-09-14 09:20 | NUR ---
MEDICATED FOR ITCHING WITH [facility].
[2018-09-14] MEDS: TRAMADOL HCL 50 MG TABLET PO PRN ×2 (09:30→17:36)
--- NOTE | 2018-09-14 09:30 | NUR ---
GIVEN ULTRAM FOR SHOULDER PAIN AND LOW BACK PAIN.
--- NOTE | 2018-09-14 11:50 | NUR ---
UA SENT ORDERED.
[2018-09-14] MEDS: LORAZEPAM 0.5 MG TABLET PO PRN (11:54)
--- NOTE | 2018-09-14 11:55 | NUR ---
GIVEN ATIVAN AND NICOTINE PATCH.
[2018-09-14] MEDS: NAPROXEN 500 MG TABLET PO PRN (14:38)
[2018-09-14 14:49] LABS: APPEARANCE,URINE SL CLOUDY (CLEAR); BILIRUBIN,URINE NEGATIVE (NEGATIVE); BLOOD, URINE NEGATIVE Ery/uL (NEGATIVE); COLOR,URINE DARK YELLO (YELLOW); KETONES,URINE NEGATIVE (NEGATIVE); LEUKOCYTE ESTERASE ,URINE TRACE (NEGATIVE); NITRITE, URINE NEGATIVE (NEGATIVE); PROTEIN,URINE NEGATIVE (NEGATIVE); UGLUCOSE NEGATIVE (NEGATIVE); UROBILINOGEN,URINE 0.2 EU/dL (0.2)
--- NOTE | 2018-09-14 14:49 | NUR ---
MEDICATED FOR PAIN WITH NAPROXEN.
[2018-09-14] MEDS: diphenhydrAMINE HCL/ZINC ACET CREAM 28.3 GM TUBE TP PRN (15:12)
--- NOTE | 2018-09-14 15:16 | NUR ---
BENADRYL CREAM APPLIED TO RASH ON BACK,BUTTOCKS AND ABD,STATES SHE THINKS THIS IS FLEAS FROM HER DOG.
[2018-09-14 15:32] LABS: BACTERIA,URINE None seen /HPF (None Seen); RBC,URINE 0-2 /HPF (0-2); SQUAMOUS EPITHELIAL CELL,UR Few /HPF (None Seen)
[2018-09-14 16:00] VITALS: BP 106/56
[2018-09-14] MEDS: ACETAMINOPHEN 325 MG TABLET PO PRN (19:49)
[2018-09-14 20:14] VITALS: BP 119/73
[2018-09-14] MEDS: TEMAZEPAM 7.5 MG CAPSULE PO PRN (20:37)
[2018-09-14] MEDS: risperiDONE 1 MG TABLET PO SCH (21:38)
[2018-09-15] MEDS: TRAMADOL HCL 50 MG TABLET PO PRN ×3 (05:14→21:57)
[2018-09-15 08:00] VITALS: BP 91/58
[2018-09-15] MEDS: POTASSIUM CHLORIDE 20 MEQ TAB.PRT.SR PO SCH ×2 (08:21→16:47)
[2018-09-15] MEDS: PANTOPRAZOLE 40 MG TABLET.DR PO SCH (08:21)
[2018-09-15] MEDS: MONTELUKAST SODIUM (10MG) 10 MG TABLET PO SCH (08:25)
[2018-09-15] MEDS: LEVETIRACETAM (250 MG) 250 MG TABLET PO SCH ×2 (08:25→21:15)
[2018-09-15] MEDS: GABAPENTIN 300 MG CAPSULE PO SCH ×3 (08:26→16:47)
[2018-09-15] MEDS: ESCITALOPRAM OXALATE (10 MG) 10 MG TABLET PO SCH (08:26)
[2018-09-15] MEDS: NICOTINE PATCH (14MG) 14 MG PATCH.TD24 TD SCH (08:30)
[2018-09-15] MEDS: OLOPATADINE HCL 0.1% OPHTH BOTTLE EACHEYE SCH ×2 (08:30→16:47)
[2018-09-15] MEDS: FUROSEMIDE 20 MG TABLET PO SCH (09:00)
[2018-09-15] MEDS: LISINOPRIL (20MG) 20 MG TABLET PO SCH (09:00)
[2018-09-15] MEDS: ACETAMINOPHEN 325 MG TABLET PO PRN (09:23)
[2018-09-15] MEDS: hydrOXYzine PAMOATE 25 MG CAPSULE PO PRN ×3 (09:23→21:16)
[2018-09-15] MEDS: LORAZEPAM 0.5 MG TABLET PO PRN ×2 (09:23→15:38)
[2018-09-15] MEDS: MUPIROCIN OINT 2% 22 GM TUBE SCH ×2 (10:29→21:16)
--- NOTE | 2018-09-15 12:11 | NUR ---
WOUND CARE CONSULT: PT PRESENTS WITH LEFT KNEE ABRASION, PRESENT ON ADMISSION. RECOMMENDATIONS MADE FOR SKIN PROTECTION AND WOUND CARE. DISCUSSED WITH NURSING STAFF. PT COMPLAINS OF SCALP ITCHING. DEFER TO MD/CORPORATE BANKING OFFICER. WILL SEE PRN. CURRENT JERMAN SCORE IS 20. Addendum: 09/15/18 at 1212 by GAVI HERNANDEZ WNDNU Amended: Links added.
--- NOTE | 2018-09-15 12:57 | NUR ---
LUPE faxed SNF referrals to [facility] P:[phone] F:[phone], [facility] P:[phone] F:[phone], and [facility] P:[phone] F:[phone] for review.
[2018-09-15] MEDS: NEOMY SULF/BACITRAC ZN/POLY 15 GM TUBE TP SCH (13:33)
--- NOTE | 2018-09-15 14:43 | NUR ---
DISCHARGE PLANNING: SW spoke with pt regarding referral to 3 nursing homes in [facility] SW explained that if pt is not accepted she will have to go to a homeless assisted in [facility] or be discharged to a local SNF. Pt stated that she did not want to be discharged to a local SNF and also stated none of the homeless shelters in [facility] will accept her because she has been to all of them.
[2018-09-15 16:00] VITALS: BP 107/65
[2018-09-15] MEDS: NAPROXEN 500 MG TABLET PO PRN (16:54)
[2018-09-15 19:50] VITALS: BP_SYST 120; BP_SYST 143; BP_DIAS 59; BP_DIAS 78
[2018-09-15 20:35] LABS: APPEARANCE,URINE SL CLOUDY (CLEAR); BILIRUBIN,URINE NEGATIVE (NEGATIVE); BLOOD, URINE NEGATIVE Ery/uL (NEGATIVE); COLOR,URINE YELLOW (YELLOW); KETONES,URINE NEGATIVE (NEGATIVE); LEUKOCYTE ESTERASE ,URINE TRACE (NEGATIVE); NITRITE, URINE NEGATIVE (NEGATIVE); PROTEIN,URINE NEGATIVE (NEGATIVE); UGLUCOSE NEGATIVE (NEGATIVE); UROBILINOGEN,URINE 0.2 EU/dL (0.2)
[2018-09-15 20:59] LABS: BACTERIA,URINE None seen /HPF (None Seen); RBC,URINE 0-2 /HPF (0-2); SQUAMOUS EPITHELIAL CELL,UR Few /HPF (None Seen)
[2018-09-15] MEDS: TEMAZEPAM 7.5 MG CAPSULE PO PRN (21:16)
[2018-09-15] MEDS: risperiDONE 1 MG TABLET PO SCH (21:16)
[2018-09-16 08:00] VITALS: BP 124/75
[2018-09-16] MEDS: NICOTINE PATCH (14MG) 14 MG PATCH.TD24 TD SCH (08:33)
[2018-09-16] MEDS: ESCITALOPRAM OXALATE (10 MG) 10 MG TABLET PO SCH (08:34)
[2018-09-16] MEDS: POTASSIUM CHLORIDE 20 MEQ TAB.PRT.SR PO SCH ×2 (08:34→17:05)
[2018-09-16] MEDS: MONTELUKAST SODIUM (10MG) 10 MG TABLET PO SCH (08:34)
[2018-09-16] MEDS: GABAPENTIN 300 MG CAPSULE PO SCH ×3 (08:35→17:06)
[2018-09-16] MEDS: LEVETIRACETAM (250 MG) 250 MG TABLET PO SCH ×2 (08:35→21:19)
[2018-09-16] MEDS: FUROSEMIDE 20 MG TABLET PO SCH (08:35)
[2018-09-16] MEDS: LISINOPRIL (20MG) 20 MG TABLET PO SCH (08:36)
[2018-09-16] MEDS: OLOPATADINE HCL 0.1% OPHTH BOTTLE EACHEYE SCH ×2 (08:39→17:06)
[2018-09-16] MEDS: NEOMY SULF/BACITRAC ZN/POLY 15 GM TUBE TP SCH (08:40)
[2018-09-16] MEDS: MUPIROCIN OINT 2% 22 GM TUBE SCH ×2 (08:41→21:20)
[2018-09-16] MEDS: PANTOPRAZOLE 40 MG TABLET.DR PO SCH (08:44)
[2018-09-16] MEDS: TRAMADOL HCL 50 MG TABLET PO PRN ×3 (08:45→21:20)
--- NOTE | 2018-09-16 08:45 | NUR ---
rn notes administered tramadol 100 mg po prn for generalized pain 02/05 per patient request. v/s stable . continued monitoring.
[2018-09-16] MEDS: LORAZEPAM 0.5 MG TABLET PO PRN ×2 (09:53→20:14)
--- NOTE | 2018-09-16 09:53 | NUR ---
rn notes administered Ativan 0.5 mg po prn for anxiety per patient request, v/s taken stable, bp124/75, p-65. continued monitoring.
--- NOTE | 2018-09-16 14:37 | NUR ---
RN-CO: TRAMADOL GIVEN FOR GEN BODY PAIN 02/05.
--- NOTE | 2018-09-16 15:26 | NUR ---
SW contacted Carline, in school suspension coordinator at [facility] P:[phone], Geetha, in school suspension coordinator at [facility] P:[phone], and Maryam, admission coordinator at [facility] P:[phone] who stated they are unable to accept pt due to her current psych hospitalization and pt not being appropriate for their facility.
--- NOTE | 2018-09-16 15:31 | NUR ---
DISCHARGE PLANNING: SW spoke with pt regarding her discharge plan, SW informed her the 3 SNF's she referred her to are not accepting her. SW explained that her two options are going to a homeless penitentiary in [facility] or being placed at a local SNF. Pt stated that she refuses to be placed at a local SNF and also stated she will not go to a homeless penitentiary because she has been banned from all of them.
--- NOTE | 2018-09-16 15:35 | NUR ---
SW received a transportation agreement letter from [facility] when ready for discharge.
--- NOTE | 2018-09-16 15:36 | NUR ---
LUPE contacted Efra Zhao, slot shift supervisor at [facility] [phone] and left a voicemail requesting transportation coordination for pt discharging on Thursday09/21/18.
--- NOTE | 2018-09-16 15:38 | NUR ---
SW contacted pts daughter Ana Laura [phone] to discuss pts discharge plan, SW left a voicemail for callback.
[2018-09-16] MEDS: ACETAMINOPHEN 325 MG TABLET PO PRN (15:57)
[2018-09-16] MEDS: hydrOXYzine PAMOATE 25 MG CAPSULE PO PRN (15:57)
--- NOTE | 2018-09-16 15:57 | NUR ---
rn notes Administered Tylenol for generalized pain, and Vistaril 50 mg po prn for itching per patient request. continued monitoring. XR of right shoulder taken.
[2018-09-16 16:00] VITALS: BP 102/69
[2018-09-16 20:00] VITALS: BP 103/65
[2018-09-16] MEDS: risperiDONE 1 MG TABLET PO SCH (21:20)
[2018-09-16] MEDS: TEMAZEPAM 7.5 MG CAPSULE PO PRN (22:36)
[2018-09-17 08:00] VITALS: BP 128/72
--- NOTE | 2018-09-17 08:38 | NUR ---
LUPE contacted Efra Zhao, engineering supervisor at [facility] [phone] and left a voicemail requesting transportation coordination for pt discharging on Thursday09/21/18.
[2018-09-17] MEDS: GABAPENTIN 300 MG CAPSULE PO SCH ×3 (09:24→17:13)
[2018-09-17] MEDS: FUROSEMIDE 20 MG TABLET PO SCH (09:25)
[2018-09-17] MEDS: ESCITALOPRAM OXALATE (10 MG) 10 MG TABLET PO SCH (09:25)
[2018-09-17] MEDS: NICOTINE PATCH (14MG) 14 MG PATCH.TD24 TD SCH (09:25)
[2018-09-17] MEDS: LEVETIRACETAM (250 MG) 250 MG TABLET PO SCH ×2 (09:25→20:57)
[2018-09-17] MEDS: LISINOPRIL (20MG) 20 MG TABLET PO SCH (09:25)
[2018-09-17] MEDS: NAPROXEN 500 MG TABLET PO PRN (09:25)
[2018-09-17] MEDS: POTASSIUM CHLORIDE 20 MEQ TAB.PRT.SR PO SCH ×2 (09:25→17:13)
[2018-09-17] MEDS: PANTOPRAZOLE 40 MG TABLET.DR PO SCH (09:25)
[2018-09-17] MEDS: MONTELUKAST SODIUM (10MG) 10 MG TABLET PO SCH (09:27)
[2018-09-17] MEDS: MUPIROCIN OINT 2% 22 GM TUBE SCH ×2 (09:31→20:57)
[2018-09-17] MEDS: NEOMY SULF/BACITRAC ZN/POLY 15 GM TUBE TP SCH (09:31)
[2018-09-17] MEDS: OLOPATADINE HCL 0.1% OPHTH BOTTLE EACHEYE SCH ×2 (09:31→17:14)
[2018-09-17] MEDS: hydrOXYzine PAMOATE 25 MG CAPSULE PO PRN ×2 (10:22→22:11)
[2018-09-17] MEDS: TRAMADOL HCL 50 MG TABLET PO PRN ×2 (10:23→17:14)
--- NOTE | 2018-09-17 12:03 | NUR ---
DISCHARGE PLANNING: ULPE contacted pts daughter Ana Laura [phone] to discuss pts discharge plan, SW explained that she attempted to refer her to 3 SNF's in [facility] and the referrals were not accepted due to pts current psychiatric hospitalization. Daughter then stated that she is unable to help pt due to her current mental state and also stated that pt is not receptive to receiving help from community mental health clinics and also stated pt does not want to help herself. Daughter requested SW speak with [facility] and see if they are able to assist pt with housing resources. LUPE informed her that SW has left 2 messages for the plc programmer and is waiting to hear back from him. Daughter stated that if pt is not willing to cooperate then there is nothing pts family can do for her and pt will have to be discharged to a homeless alf in [facility].
[2018-09-17] MEDS: LORAZEPAM 0.5 MG TABLET PO PRN (13:19)
--- NOTE | 2018-09-17 14:20 | NUR ---
DISCHARGE PLANNING: SW spoke with pt regarding her options for discharge. SW explained to pt that the nursing homes in [facility] did not accept her referral due to her being in a psychiatric hold. SW explained that pts 2 options were to be discharged to a homeless fdc in [facility] or a local SNF. Pt stated that she did not want to be homeless and agreed to a local SNF.
[2018-09-17 16:00] VITALS: BP 101/67
[2018-09-17 20:00] VITALS: BP 114/66
[2018-09-17] MEDS: ACETAMINOPHEN 325 MG TABLET PO PRN (20:07)
--- NOTE | 2018-09-17 20:08 | NUR ---
RN NOTES: AMBULATORY, REQUEST FOR ANOTHER TRAMAL EXPLAINED TO HER SHE IS NOT YET DUE,SHE VERBALIZED SHE IS IN GENERALIZED MILD PAIN,TYLENOL PRN GIVEN, SNACKS GIVEN, NON PHARMACOLOGIC INTERVENTION RENDERED.
[2018-09-17] MEDS: TEMAZEPAM 7.5 MG CAPSULE PO PRN (20:58)
[2018-09-17] MEDS: risperiDONE 1 MG TABLET PO SCH (22:03)
--- NOTE | 2018-09-17 22:05 | NUR ---
RN NOTES: CHANGE HOSPITAL GOWN, KEPT COMFORTABLE IN BED, LYING IN BETWEEN, CLOSING HER EYES, THEN SHE ASKED FOR A SNACK, GIVEN SANDWICH AND JUICE.
--- NOTE | 2018-09-17 22:12 | NUR ---
RN NOTES: COMPLAINED OF FEELING ITCHY ALL OVER HER BODY,HER NIGHT GOWN WAS CHANGE, CREAM APPLIED TO HER ITCHY AREAS, SHE REQUEST VISTARIL PRN FOR ITCHING, SHE TAKE THE MEDICATION AFTER SHE ATE SANDWICH.
[2018-09-18] MEDS: TRAMADOL HCL 50 MG TABLET PO PRN ×2 (03:55→15:19)
--- NOTE | 2018-09-18 04:00 | NUR ---
RN NOTES: AWAKE, IMMEDIATELY CALL THE NURSE AND ASKED FOR HER TRAMAL, SHE SAID "I HAVE PAIN ALL OVER MY BODY, ESPECIALLY IN THE BACK AREA" RATE 02/05, SHE ASKED ALSO FOR TURKEY SANDWICH AND JUICE, AFTER SHE ATE,SHE URINATE AND GO BACK TO SLEEP.
[2018-09-18 08:00] VITALS: BP 102/62
[2018-09-18] MEDS: LEVETIRACETAM (250 MG) 250 MG TABLET PO SCH ×2 (08:44→20:48)
[2018-09-18] MEDS: PANTOPRAZOLE 40 MG TABLET.DR PO SCH (08:44)
[2018-09-18] MEDS: NICOTINE PATCH (14MG) 14 MG PATCH.TD24 TD SCH (08:44)
[2018-09-18] MEDS: MONTELUKAST SODIUM (10MG) 10 MG TABLET PO SCH (08:45)
[2018-09-18] MEDS: ESCITALOPRAM OXALATE (10 MG) 10 MG TABLET PO SCH (08:45)
[2018-09-18] MEDS: FUROSEMIDE 20 MG TABLET PO SCH (08:45)
[2018-09-18] MEDS: LISINOPRIL (20MG) 20 MG TABLET PO SCH (08:45)
[2018-09-18] MEDS: GABAPENTIN 300 MG CAPSULE PO SCH ×3 (08:45→17:20)
[2018-09-18] MEDS: LORAZEPAM 0.5 MG TABLET PO PRN ×2 (08:45→17:20)
[2018-09-18] MEDS: NAPROXEN 500 MG TABLET PO PRN (08:45)
[2018-09-18] MEDS: POTASSIUM CHLORIDE 20 MEQ TAB.PRT.SR PO SCH ×2 (08:46→17:00)
[2018-09-18] MEDS: MUPIROCIN OINT 2% 22 GM TUBE SCH ×2 (08:46→20:48)
[2018-09-18] MEDS: OLOPATADINE HCL 0.1% OPHTH BOTTLE EACHEYE SCH ×2 (08:47→17:20)
[2018-09-18] MEDS: NEOMY SULF/BACITRAC ZN/POLY 15 GM TUBE TP SCH (08:47)
[2018-09-18] MEDS: oxyCODONE HCL SR 10MG TAB.SR.12H PO SCH ×2 (10:38→22:14)
[2018-09-18] MEDS: hydrOXYzine PAMOATE 25 MG CAPSULE PO PRN ×2 (13:11→20:48)
[2018-09-18 16:00] VITALS: BP 121/70
[2018-09-18 20:00] VITALS: BP 129/78
[2018-09-18] MEDS: risperiDONE 1 MG TABLET PO SCH (22:00)
[2018-09-18] MEDS: TEMAZEPAM 7.5 MG CAPSULE PO PRN (23:25)
[2018-09-19] MEDS: TRAMADOL HCL 50 MG TABLET PO PRN ×2 (02:41→12:20)
[2018-09-19] MEDS: hydrOXYzine PAMOATE 25 MG CAPSULE PO PRN ×2 (06:09→14:34)
[2018-09-19 08:00] VITALS: BP 123/68
[2018-09-19] MEDS: ESCITALOPRAM OXALATE (10 MG) 10 MG TABLET PO SCH (08:20)
[2018-09-19] MEDS: POTASSIUM CHLORIDE 20 MEQ TAB.PRT.SR PO SCH ×2 (08:20→16:25)
[2018-09-19] MEDS: NAPROXEN 500 MG TABLET PO PRN (08:20)
[2018-09-19] MEDS: FUROSEMIDE 20 MG TABLET PO SCH (08:20)
[2018-09-19] MEDS: PANTOPRAZOLE 40 MG TABLET.DR PO SCH (08:20)
[2018-09-19] MEDS: oxyCODONE HCL SR 10MG TAB.SR.12H PO SCH ×2 (08:20→21:05)
[2018-09-19] MEDS: GABAPENTIN 300 MG CAPSULE PO SCH ×3 (08:21→16:25)
[2018-09-19] MEDS: NICOTINE PATCH (14MG) 14 MG PATCH.TD24 TD SCH (08:21)
[2018-09-19] MEDS: MONTELUKAST SODIUM (10MG) 10 MG TABLET PO SCH (08:21)
[2018-09-19] MEDS: LEVETIRACETAM (250 MG) 250 MG TABLET PO SCH ×2 (08:21→21:04)
[2018-09-19] MEDS: LISINOPRIL (20MG) 20 MG TABLET PO SCH (08:21)
[2018-09-19] MEDS: NEOMY SULF/BACITRAC ZN/POLY 15 GM TUBE TP SCH (08:22)
[2018-09-19] MEDS: MUPIROCIN OINT 2% 22 GM TUBE SCH ×2 (08:22→21:07)
[2018-09-19] MEDS: OLOPATADINE HCL 0.1% OPHTH BOTTLE EACHEYE SCH ×2 (08:22→16:26)
[2018-09-19] MEDS: LORAZEPAM 0.5 MG TABLET PO PRN ×2 (10:42→18:16)
--- NOTE | 2018-09-19 10:54 | NUR ---
GPS RN NOTES PATIENT SEEN AND EXAMINED BY DR. TERRY. WITH NEW ORDER FOR PT EVAL AND TX. ORDER NOTED AND CARRIED OUT. PATIENT MADE AWARE AND VERBALIZED UNDERSTANDING. WILL CONTINUE TO MONITOR
[2018-09-19] MEDS: ACETAMINOPHEN 325 MG TABLET PO PRN (14:37)
[2018-09-19 16:00] VITALS: BP 105/87
[2018-09-19 19:58] VITALS: BP 104/63
[2018-09-19 20:00] VITALS: BP 104/63
[2018-09-19] MEDS: risperiDONE 1 MG TABLET PO SCH ×2 (21:05→22:00)
[2018-09-19] MEDS: TEMAZEPAM 7.5 MG CAPSULE PO PRN (21:59)
[2018-09-19] MEDS: MAG HYDROX/AL HYDROX/SIMETH 30 ML UDC PO PRN (22:01)
[2018-09-20] MEDS: TRAMADOL HCL 50 MG TABLET PO PRN ×4 (00:09→19:00)
[2018-09-20] MEDS: hydrOXYzine PAMOATE 25 MG CAPSULE PO PRN ×2 (00:09→09:05)
[2018-09-20] MEDS: ACETAMINOPHEN 325 MG TABLET PO PRN ×2 (03:21→14:34)
[2018-09-20] MEDS: MAG HYDROX/AL HYDROX/SIMETH 30 ML UDC PO PRN ×3 (06:28→19:00)
[2018-09-20 08:00] VITALS: BP 100/60
[2018-09-20] MEDS: LISINOPRIL (20MG) 20 MG TABLET PO SCH (08:23)
--- NOTE | 2018-09-20 08:30 | NUR ---
gps supervisor shaving and splitting: notes neurontin 300mg dose not available 'til 1100 per pharmacy, pt aware.
[2018-09-20] MEDS: MUPIROCIN OINT 2% 22 GM TUBE SCH ×2 (08:52→21:11)
[2018-09-20] MEDS: OLOPATADINE HCL 0.1% OPHTH BOTTLE EACHEYE SCH ×2 (08:52→16:49)
[2018-09-20] MEDS: NEOMY SULF/BACITRAC ZN/POLY 15 GM TUBE TP SCH (08:52)
[2018-09-20] MEDS: diphenhydrAMINE HCL/ZINC ACET CREAM 28.3 GM TUBE TP PRN (08:52)
[2018-09-20] MEDS: NAPROXEN 500 MG TABLET PO PRN ×2 (08:56→16:48)
[2018-09-20] MEDS: POTASSIUM CHLORIDE 20 MEQ TAB.PRT.SR PO SCH ×2 (08:56→16:48)
[2018-09-20] MEDS: PANTOPRAZOLE 40 MG TABLET.DR PO SCH (08:56)
[2018-09-20] MEDS: MONTELUKAST SODIUM (10MG) 10 MG TABLET PO SCH (08:56)
[2018-09-20] MEDS: FUROSEMIDE 20 MG TABLET PO SCH (08:57)
[2018-09-20] MEDS: LEVETIRACETAM (250 MG) 250 MG TABLET PO SCH ×2 (08:57→21:09)
[2018-09-20] MEDS: ESCITALOPRAM OXALATE (10 MG) 10 MG TABLET PO SCH (08:57)
[2018-09-20] MEDS: NICOTINE PATCH (14MG) 14 MG PATCH.TD24 TD SCH (08:57)
[2018-09-20] MEDS: oxyCODONE HCL SR 10MG TAB.SR.12H PO SCH ×2 (08:57→21:09)
[2018-09-20] MEDS: LORAZEPAM 0.5 MG TABLET PO PRN (09:05)
--- NOTE | 2018-09-20 09:19 | NUR ---
LUPE faxed SNF referral to CJ, pediatric care coordinator at [facility] Address: [address] [place] [address] for review.
[2018-09-20] MEDS: GABAPENTIN 300 MG CAPSULE PO SCH ×3 (11:21→16:48)
--- NOTE | 2018-09-20 12:14 | NUR ---
SW received a call from SUKHWINDER, communication center coordinator at [facility] Address: [address] [place] [address] stating pt has been approved to the facility.
--- NOTE | 2018-09-20 12:15 | NUR ---
DISCHARGE PLANNING: SW spoke with pt regarding her approval to [facility] pt stated she had not other choice and stated she would go to [facility] as she does not want to be discharged to a homeless fpc in [facility].
--- NOTE | 2018-09-20 14:55 | NUR ---
LUPE contacted pts daughter Ana Laura [phone] and left voicemail informing her pt is discharging tomorrow 09/21/18 to [facility].
[2018-09-20 16:00] VITALS: BP 119/75
[2018-09-20 19:41] VITALS: BP 129/58
[2018-09-20] MEDS: risperiDONE 1 MG TABLET PO SCH (21:10)
[2018-09-20] MEDS: TEMAZEPAM 7.5 MG CAPSULE PO PRN (22:17)
[2018-09-21] MEDS: ACETAMINOPHEN 325 MG TABLET PO PRN (03:10)
[2018-09-21] MEDS: TRAMADOL HCL 50 MG TABLET PO PRN ×2 (04:41→11:05)
[2018-09-21] MEDS: hydrOXYzine PAMOATE 25 MG CAPSULE PO PRN ×2 (05:54→09:01)
[2018-09-21 08:00] VITALS: BP 100/55
[2018-09-21] MEDS: PANTOPRAZOLE 40 MG TABLET.DR PO SCH (08:36)
[2018-09-21] MEDS: LEVETIRACETAM (250 MG) 250 MG TABLET PO SCH (08:36)
[2018-09-21] MEDS: POTASSIUM CHLORIDE 20 MEQ TAB.PRT.SR PO SCH (08:37)
[2018-09-21] MEDS: FUROSEMIDE 20 MG TABLET PO SCH (08:37)
[2018-09-21] MEDS: GABAPENTIN 300 MG CAPSULE PO SCH (08:37)
[2018-09-21] MEDS: ESCITALOPRAM OXALATE (10 MG) 10 MG TABLET PO SCH (08:37)
[2018-09-21] MEDS: oxyCODONE HCL SR 10MG TAB.SR.12H PO SCH (08:38)
[2018-09-21] MEDS: MONTELUKAST SODIUM (10MG) 10 MG TABLET PO SCH (08:38)
[2018-09-21] MEDS: NICOTINE PATCH (14MG) 14 MG PATCH.TD24 TD SCH (08:38)
[2018-09-21 08:39] VITALS: BP 100/55
[2018-09-21] MEDS: LISINOPRIL (20MG) 20 MG TABLET PO SCH (08:39)
[2018-09-21] MEDS: OLOPATADINE HCL 0.1% OPHTH BOTTLE EACHEYE SCH (08:43)
[2018-09-21] MEDS: MUPIROCIN OINT 2% 22 GM TUBE SCH (08:43)
[2018-09-21] MEDS: NEOMY SULF/BACITRAC ZN/POLY 15 GM TUBE TP SCH (08:46)
[2018-09-21] MEDS: MAG HYDROX/AL HYDROX/SIMETH 30 ML UDC PO PRN (09:01)
[2018-09-21] MEDS: LORAZEPAM 0.5 MG TABLET PO PRN (10:33)
--- NOTE | 2018-09-21 10:36 | NUR ---
GPS.RN. PT REFUSING SKIN CHECK AND PHOTOS, PT STATES SHES TOO NERVOUS AND ANXIOUS AND DOESN;T WANT TO WASTE HER TIME WITH THIS BEFORE D/C. ATIVAN PROVIDED.
--- NOTE | 2018-09-21 11:20 | NUR ---
DISCHARGE NOTE: Pt will be discharged at 11:30am via [facility] trip#[id number] to [facility] Address: [address] [place] [address] . Pts daughter Ana Laura [phone] was notified via voicemail. Pts mood was euthymic with congruent affect. Pt denied visual/auditory hallucinations and denied suicidal/homicidal ideation. Pt will address her substance use and continue psychiatric with Psychiatrist: Dr. Orellana Address: [address] [place] [address] and be under the care of [employer]: Dr Bingham Address: [address] [address] [phone]. For smoking cessation, patient was referred to the [employer] and [employer] [id number]. Pt will also participate in a telephone meeting with Nicotine Anonymous [phone] on Saturday September 22, 2018 at 8:00am. The multidisciplinary exitcare form was done, printed, signed, and given to the patient.
--- NOTE | 2018-09-21 12:00 | NUR ---
GPS. RN D/C PT PREPARED FOR D.C PER MD. PT A&0X3 AND AWARE AND AGREEABLE TO D/C PLAN. PT TOLERATING ROOM AIR WITHOUT DISTRESS. PT REPORTS GENERALIZED CHRONIC PAIN AND ANXIETY R/T TO LEAVING. PT WITH ALL BELONGING AND DOCUMENT SIGNED. PT BELONGINGS RETURNED FROM [facility] AND ALL ITEMS PRESENT AND PT SIGNED. PT REFUSED D/C PHOTOS OR SKIN CARE. PT CURRENT HEALTH STATUS, NEEDS, MEDICATIONS AND BEHAVIOR ENDORSED TO [facility]PT[facility] AT [facility], PT TO 14B. PT BRIEFED ON SO D/C PACKET AND VERBALIZING UNDERSTANDING AND INTENT TO COMPLY WITH POC. PT DTR UPDATED BY S.W. PT LEFT WITH EMT TRANSPORT CREW.
--- NOTE | 2018-10-05 15:36 | NUR ---
15 DAY SUBSTANCE ABUSE FOLLOW UP: excluded due to D/C to [facility].
== END 2018-09-21 11:45 | DRG 885 ==
LOC: GPS 21:14
PROVIDERS: ADMIT Psychiatry & Neurology Psychiatry; ATTEND Psychiatry & Neurology Psychiatry
DX: F33.3 Major depressive disorder, recurrent, severe with psychotic symptoms (principal); I11.0 Hypertensive heart disease with heart failure; I50.32 Chronic diastolic (congestive) heart failure; R45.851 Suicidal ideations; F29 Unspecified psychosis not due to a substance or known physiological condition; F17.210 Nicotine dependence, cigarettes, uncomplicated; E66.9 Obesity, unspecified; G89.4 Chronic pain syndrome; K21.9 Gastro-esophageal reflux disease without esophagitis; M79.7 Fibromyalgia; G40.909 Epilepsy, unspecified, not intractable, without status epilepticus; G62.9 Polyneuropathy, unspecified; M19.90 Unspecified osteoarthritis, unspecified site; Z86.19 Personal history of other infectious and parasitic diseases; J44.9 Chronic obstructive pulmonary disease, unspecified; M51.37 Other intervertebral disc degeneration, lumbosacral region; F15.10 Other stimulant abuse, uncomplicated; Z59.0 Homelessness; Z91.14 Patient's other noncompliance with medication regimen; G93.89 Other specified disorders of brain; Z68.29 Body mass index [BMI] 29.0-29.9, adult
CPT/HCPCS: 36415; 73030-TC; 80053-TC; 80061-TC; 80177; 81000-TC; 83735-TC; 84100-TC; 84443-TC; 85025-TC; 87081-TC; A6402; Q0177

== ENCOUNTER 2018-10-19 11:30 | Outpatient (CLI) | payer MEDICARE, OTHER ==
[~2018-10-19 11:30] MED LIST changes: +POTA-88 PO
== END 2018-10-19 23:59 | disposition home or self-care (01) ==
LOC: MSC 11:30
PROVIDERS: ATTEND Anesthesiology
DX: M54.16 Radiculopathy, lumbar region (principal); M46.96 Unspecified inflammatory spondylopathy, lumbar region; M62.830 Muscle spasm of back; M19.011 Primary osteoarthritis, right shoulder; G89.4 Chronic pain syndrome; M25.9 Joint disorder, unspecified; M40.299 Other kyphosis, site unspecified; Z79.891 Long term (current) use of opiate analgesic